=== PATIENT | female | born 1995 | race Caucasian/White ===

== ENCOUNTER 2025-01-29 04:15 | Inpatient (IN) ==
[2025-01-29] MEDS ORDERED: CALCIUM CARBONATE 500 MG CHEWABLE TAB PO PRN (04:59)
[2025-01-29] MEDS ORDERED: ACETAMINOPHEN 325 MG TAB PO PRN ×2 (04:59→10:34)
[2025-01-29] MEDS ORDERED: LIDOCAINE 1% LOCAL 20 ML VIAL INFIL PRN (04:59)
--- NOTE | 2025-01-29 05:06 | History & Physical Report ---
Date of Service January 29, 2025 Assessment & Plan (1) Supervision of normal intrauterine in primigravida: Plan: IUP at 40 5/7 weeks in labor BP mildly elevated with 1+proteinuria will check CMP along with routine labs requesting epidural analgesia anticipate vaginal History of Present Illness Primary Care Provider: CANDIDO Ledesma Patient is a 30 yo female EDC 01/24/25 who presents at 40 5/7 weeks in labor. complicated by May-Thurner Syndrome. 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 syndrome s/p stent left iliac vein Family History Grandfather (Paternal) Stroke Myocardial infarction Grandmother (Paternal) Diabetes Grandfather (Maternal) Cancer Grandfather (Maternal) Heart disease Myocardial infarction Denies family history of Ovarian cancer Prostate cancer Breast cancer Colorectal cancer Social History Smoking Status: Never smoker Second Hand Exposure: No; Do You Dip or Chew Tobacco: No; Hx Alcohol Use: Yes Hx Substance Use: No marital status: marital status details: Ruben (29) [phone] Current Living Situation: Spouse Current Living Situation Comment: Lives with spouse, 1 dog. current occupational status: employed current occupation: Teacher [employer] How many Children do You have: 0 Feels Safe at Home: Yes Diet: regular caffeine: Yes Dental Care, Regularly: Yes Physical Activity Frequency: 3-4 Times per Week Seatbelt Use: always Sunscreen Use: Yes Assistive Devices: Contacts and Glasses Review of Systems All systems reviewed & are unremarkable except as noted in HPI & below Physical Exam Constitutional: WD/WN, vitals as above Psychiatric: A+Ox3, euthymic affect Genitourinary: OB Exam Abdomen: + vertex and + regular contractions (Q 2-4 minutes) Manual OB Exam: + cervical dilation 5 cm and + cervical effacement 100% OB Exam Monitor Tracing: + external FHT monitor used, + category I and + normal FHT variability Results & Data Vital Signs (Past 12 Hours) Vital Signs Temp Pulse Resp BP 01/29/25 04:49 81 145/82 H 01/29/25 04:35 98.1 F 80 20 152/83 H Code Status & VTE Plan VTE Prophylaxis Plan VTE Prophylaxis will be ordered: No Coding Level of Care Code 57768 INT INP/OBS CARE MIN Diagnoses Supervision of normal intrauterine in primigravida Z34.00
[2025-01-29] MEDS: LACTATED RINGER'S 1,000 ML IV PRN (05:10)
[2025-01-29 05:36] LABS: Hematocrit (blood only) 38.6 % (37.0-47.0); Hemoglobin 13.4 g/dl (12.0-16.0); Mean Corpuscular Hemoglobin 31.5 pg (25.0-34.0); Mean Corpuscular Hgb Conc 34.7 g/dL (32.0-36.0); Mean Corpuscular Volume 90.8 fL (80.0-100.0); Mean Platelet Volume 12.4 fL (9.4-12.4); Platelet Count 122 K/uL (130-400); RDW Coefficient of Variation 12.1 % (11.5-14.5); RDW Standard Deviation 40.1 fL (36.4-46.3); Red Blood Count 4.25 M/uL (4.20-5.40); White Blood Count 12.24 K/ul (4.8-10.8)
[2025-01-29 05:52] LABS: Albumin Globulin Ratio 1.3 (0.9-2); Albumin Level 3.4 gm/dl (3.4-5.0); BUN Creatinine Ratio 19.5 (10-20); Bilirubin,Total 0.3 mg/dl (0.2-1.0); Calcium 9.1 mg/dl (8.6-10.3); Creatinine Clr Calc Pharmacy 111.3 ml/min; Globulin 2.7 gm/dl (2.5-4.0); Potassium 4.1 mmol/L (3.5-5.1); Total Protein 6.1 gm/dl (6.0-8.3)
[2025-01-29] MEDS: BUPIVACAINE 0.25% PF 30 ML VIAL ONE (06:22)
[2025-01-29] MEDS: LIDOCAINE 2%/EPINEPHRINE 1:200,000 20 ML PF ONE (06:22)
[2025-01-29] MEDS: fentANYL 2 MCG/ML BUPIVacaine 0.125%-NSS 100ML BAG ONE (06:29)
--- NOTE | 2025-01-29 06:36 | Anesthesiology Consultation ---
Date of Service January 29, 2025 Assessment & Plan Chart Review Chart Review: Acceptable Risk for Labor Epidural Consults Requested none History Height/Weight Height: 5 ft 5 in Weight: 78.018 kg Allergies Allergy/AdvReac Type Severity Reaction Status Date / Time Penicillins AdvReac Hives Verified 01/29/25 04:37 Medications Home Medications Medication Instructions Recorded Confirmed Last Taken aspirin 81 mg tablet 81 mg PO DAILY 10/13/23 01/29/25 01/28/25 docosahexaenoic acid [ DHA] PO 06/01/24 01/27/25 Unknown valacyclovir 1 gram tablet 2,000 mg PO .COMPLEX PRN Cold Sores 01/29/25 01/29/25 Unknown Active Medications Generic Name Dose Route Start Last Admin Trade Name Freq PRN Reason Stop Dose Admin Lactated Ringer's 1,000 mls @ 125 mls/hr 01/29/25 04:59 01/29/25 06:15 Lr IV 01/30/25 04:58 125 mls/hr .Q8H PRN Administration L&D Protocol Protocol Past Medical History Medical History Varicose veins of left leg with edema May-Thurner syndrome s/p stent left iliac vein Past Family History Family History Grandfather (Paternal) Stroke Myocardial infarction Grandmother (Paternal) Diabetes Grandfather (Maternal) Cancer Grandfather (Maternal) Heart disease Myocardial infarction Denies family history of Ovarian cancer Prostate cancer Breast cancer Colorectal cancer Social History Smoking Status: Never smoker Do You Dip or Chew Tobacco: No Hx Alcohol Use: Yes Hx Substance Use: No substance use type: does not use Physical Exam Vital Signs Last Vital Signs Temp 36.7 C 01/29/25 04:35 Pulse 101 H 01/29/25 06:32 Resp 20 01/29/25 04:35 BP 132/61 01/29/25 06:32 Pulse Ox 98 01/29/25 06:31 Testing Laboratory Results 01/29/25 05:09 01/29/25 05:09
[2025-01-29] MEDS ORDERED: NALOXONE HCL 1 MG in SODIUM CHLORIDE 0.9% 1,000 ML IV PRN (06:37)
[2025-01-29] MEDS ORDERED: ePHEDrine sulfate 50 MG/ML AMP IV PRN (06:37)
[2025-01-29] MEDS ORDERED: fentaNYL citrate PF 100 MCG/2 ML VIAL EPI PRN (06:37)
[2025-01-29] MEDS ORDERED: ROPIVACAINE 0.5% PF 5 MG/ML 20 ML VIAL EPI PRN (06:37)
[2025-01-29] MEDS ORDERED: SODIUM CHLORIDE 0.9% PF INJ 10 ML VIAL EPI STA (06:37)
[2025-01-29] MEDS ORDERED: fentANYL 2 MCG/ML BUPIVacaine 0.125%-NSS 100ML BAG EPI PRN (06:37)
[2025-01-29] MEDS ORDERED: LIDOCAINE 2%/EPINEPHRINE 1:200,000 20 ML PF EPI STA (06:37)
[2025-01-29] MEDS ORDERED: BUPIVACAINE 0.25% PF 30 ML VIAL EPI PRN (06:37)
[2025-01-29] MEDS ORDERED: NALBUPHINE HCL INJ 10 MG/ML AMP IV PRN (06:37)
[2025-01-29] MEDS ORDERED: fentaNYL citrate PF 100 MCG/2 ML VIAL EPI STA (06:37)
[2025-01-29] MEDS ORDERED: NALOXONE HCL 0.4 MG/1 ML VIAL/CARP IV PRN (06:37)
[2025-01-29] MEDS ORDERED: diphenhydrAMINE 50 MG/ML VIAL IV PRN (06:37)
[2025-01-29] MEDS ORDERED: BUPIVACAINE 0.25% PF 30 ML VIAL EPI STA (06:37)
[2025-01-29] MEDS ORDERED: LIDOCAINE 2% MPF LOCAL 5 ML VIAL EPI PRN (06:37)
[2025-01-29] MEDS ORDERED: SODIUM CHLORIDE 0.9% PF INJ 10 ML VIAL EPI PRN (06:37)
[2025-01-29] MEDS: ePHEDrine sulfate 50 MG/ML AMP ONE (06:58)
[2025-01-29] MEDS: fentaNYL citrate PF 100 MCG/2 ML VIAL ONE (06:58)
[2025-01-29] MEDS: SODIUM CHLORIDE 0.9% PF INJ 10 ML VIAL ONE (06:59)
--- NOTE | 2025-01-29 08:40 | Labor Progress Brief Note ---
Date of Service January 29, 2025 Subjective Reason For Note: Routine Evaluation Current Pain Level(1-10): 0 contractions [id number] FHT Cat 2- occasional variables cervix exam- 9/100/-1 bulging forewaters ruptured for mec stained fluid continue current plan Assessment & Plan Admission and Anticipated Discharge Date Admission Date: January 29, 2025 Results & Data Vital Signs (Past 12 Hours) Vital Signs Temp Pulse Resp BP Pulse Ox 01/29/25 08:36 73 100 01/29/25 08:34 78 140/75 01/29/25 08:31 82 100 01/29/25 08:26 85 99 01/29/25 08:21 87 99 01/29/25 08:19 95 H 130/78 01/29/25 08:16 96 H 99 01/29/25 08:11 92 H 100 01/29/25 08:06 92 H 100 01/29/25 08:04 82 141/64 H 01/29/25 08:01 88 100 01/29/25 07:56 90 98 01/29/25 07:51 79 97 01/29/25 07:49 88 124/73 01/29/25 07:46 81 98 01/29/25 07:45 18 01/29/25 07:45 18 01/29/25 07:41 83 98 01/29/25 07:36 82 99 01/29/25 07:33 83 131/71 01/29/25 07:31 81 100 01/29/25 07:30 20 01/29/25 07:30 20 01/29/25 07:26 84 100 01/29/25 07:22 92 H 152/77 H 01/29/25 07:21 103 H 99 01/29/25 07:19 81 135/95 01/29/25 07:16 89 97 01/29/25 07:15 20 01/29/25 07:15 20 01/29/25 07:11 85 98 01/29/25 07:06 81 98 01/29/25 07:03 88 134/75 01/29/25 07:02 98.2 F 82 18 99 01/29/25 07:01 88 130/72 99 01/29/25 07:00 18 01/29/25 07:00 18 01/29/25 06:56 89 100 01/29/25 06:51 88 99 01/29/25 06:48 83 134/76 01/29/25 06:46 83 99 01/29/25 06:41 89 98 01/29/25 06:36 87 98 01/29/25 06:32 101 H 132/61 01/29/25 06:31 96 H 98 01/29/25 06:30 99 H 123/59 L 01/29/25 06:28 97 H 127/68 01/29/25 06:26 96 H 122/64 98 01/29/25 06:24 85 131/71 01/29/25 06:22 85 124/69 01/29/25 06:21 79 98 01/29/25 06:20 84 131/68 01/29/25 06:18 75 134/68 01/29/25 06:16 78 134/72 100 01/29/25 06:14 75 142/77 H 01/29/25 06:11 83 99 01/29/25 06:06 94 H 99 01/29/25 06:01 97 H 99 01/29/25 05:56 89 99 01/29/25 05:51 83 99 01/29/25 05:46 86 99 01/29/25 04:49 81 145/82 H 01/29/25 04:35 98.1 F 80 20 152/83 H Coding Level of Care Code 88635 SUB INP/OBS CARE 12/24MIN
[2025-01-29] MEDS: OXYTOCIN 30 UNITS/NSS 30 UNITS/500 ML BAG IV PRN ×2 (10:01→11:17)
[2025-01-29] MEDS: miSOPROStoL 200 MCG TAB ONE (10:05)
[2025-01-29] MEDS ORDERED: DIPHTHER/TETAN/PERTUS Vaccine (Tdap, Adol/Adult) 0.5mL IM ONE (10:34)
[2025-01-29] MEDS ORDERED: HYDROCORTISONE ACETATE 25 MG SUPP PR PRN (10:34)
[2025-01-29] MEDS ORDERED: oxyCODONE/ACETAMINOPHEN 5mg/325mg TAB PO PRN (10:34)
[2025-01-29] MEDS ORDERED: bisacodyL 10 MG SUPP PR PRN (10:34)
--- NOTE | 2025-01-29 11:05 | Anesthesia Procedure Note ---
Date of Service January 29, 2025 Anesthesia Post Epidural Note Vital Signs Vital Signs: Temp Pulse Resp BP Pulse Ox 36.7 C 133 H 18 146/65 H 90 01/29/25 08:35 01/29/25 10:51 01/29/25 08:35 01/29/25 10:51 01/29/25 08:56 Pain Intensity Lower Medial Back: Pain Intensity: 3 Notes Mental Status: alert / awake / arousable Nausea / Vomiting: adequately controlled Pain: adequately controlled Airway Patency, RR, SpO2: stable & adequate BP & HR: stable & adequate Hydration State: stable & adequate Neuraxial Anesthesia: was administered and sensory block is resolving Anesthetic Complications: no major complications apparent Epidural: Removed without complications and With tip intact
--- NOTE | 2025-01-29 11:21 | Delivery Summary ---
Vaginal Delivery Summary Date of Service January 29, 2025 Vaginal Delivery Summary and 1st Degree LAC Patient is a 30-year-old 1 P0 female EDC of 01/24/2025 who presented in active labor at 40-5/7 weeks. Membranes were ruptured for meconium stained fluid. She received effective epidural analgesia. She progressed to complete with the urge to push. She pushed effectively over intact perineum for delivery of a viable male infant. After the head was delivered, the shoulders delivered with maternal effort and the rest of the delivered easily. He is placed on the mother's abdomen for further stimulation and drying. He was crying and vigorous with stimulation. The cord was clamped at approximately 20 seconds as it was quite short. This was to allow the infant to be placed more securely on the mother's abdomen. After cord blood was obtained, the placenta was expressed intact with a three-vessel cord. bleeding was controlled with dilute Pitocin and fundal massage and then 1000 mcg of Cytotec because of significant bleeding because of uterine atony. Uterus then became firm and bleeding was minimal. A first-degree perineal laceration was repaired with 3-0 chromic in the usual fashion. Mother and infant were doing well after delivery and despite 1500 mL QBL, patient is asymptomatic at this time. [facility] Vaginal Delivery Charge Delivery Type Details: and 1st Degree LAC
[2025-01-29] MEDS: IBUPROFEN 600 MG TAB PO PRN (12:59)
[2025-01-29] MEDS: BENZOCAINE 20% SPRY 85 APPLN/85 GM CAN EXT PRN (19:57)
[2025-01-29] MEDS: DOCUSATE SODIUM 100 MG CAP PO SCH (23:46)
--- NOTE | 2025-01-30 06:53 | Obstetrical Progress Note ---
Date of Service January 30, 2025 Assessment & Plan (1) state: Plan: satisfactory recovery continue current care plan loss prevention consultant today for help encourage ambulation as tolerated Ordered CBC to follow hemoglobin after 1.5L QBL day prior d/c home today if CBC is acceptable, followup with Dr. Viveros in 6wks (2) hemorrhage: (3) Perineal laceration during delivery: Admission and Anticipated Discharge Date Admission Date: January 29, 2025 Supervising Physician Co-Signing Physician Notes Resident Physician Supervision Note: I was present with Dr. Maguire during the history and exam. I discussed the case with the resident and agree with the findings and plan as documented in the note. Any exceptions or clarifications are listed here: [None] Documented By: Ml Viveros MD, FACOG Subjective 29yo s/p with 1st deg perineal lac and hemorrhage QBL 1500mL day 1: Ambulation: ambulating normally Voiding: no voiding problems Passing Gas:: Yes Diet Tolerance:: regular diet Lochia:: Small Feeding Type:: doing well this morning- denies any symptoms of lightheadedness, dizziness, palpitations Physical Exam Physical Exam: Constitutional: WD/WN, vitals as above Psychiatric: A+Ox3, euthymic but tired appearing Genitourinary: OB Exam Abdomen: + fundus firm at umbilicus Ext: no significant LE edema Results & Data Vital Signs (Past 12 Hours) Vital Signs Temp Pulse Resp BP Pulse Ox O2 Del Method 01/30/25 04:00 36.5 C 81 18 112/70 98 Room Air 01/29/25 23:45 36.4 C L 87 18 112/72 97 Room Air 01/29/25 19:50 36.8 C 97 H 18 113/74 97 Room Air Resident Activity Tracking Resident Involvement: Resident Care Provided Care Provided: OB Delivery (2) hemorrhage hemorrhage type: unspecified Qualified Code(s): O72.1 - Other immediate hemorrhage (3) Perineal laceration during delivery Perineal laceration degree: first degree Qualified Code(s): O70.0 - First degree perineal laceration during delivery
[2025-01-30] MEDS: PRENATAL VITAMIN 1 TAB PO SCH (07:54)
[2025-01-30 09:31] LABS: Hematocrit (blood only) 28.4 % (37.0-47.0); Hemoglobin 9.5 g/dl (12.0-16.0); Mean Corpuscular Hemoglobin 31.6 pg (25.0-34.0); Mean Corpuscular Hgb Conc 33.5 g/dL (32.0-36.0); Mean Corpuscular Volume 94.4 fL (80.0-100.0); Mean Platelet Volume 12.4 fL (9.4-12.4); Platelet Count 106 K/uL (130-400); RDW Coefficient of Variation 12.5 % (11.5-14.5); RDW Standard Deviation 43.1 fL (36.4-46.3); Red Blood Count 3.01 M/uL (4.20-5.40); White Blood Count 10.36 K/ul (4.8-10.8)
[2025-01-30] MEDS: FERROUS SULFATE 325 MG TAB PO SCH (11:07)
[2025-01-30] MEDS: bisacodyL 5 MG TABEC PO SCH (20:11)
[2025-01-31 00:45] VITALS: PULSE 85; RESP 18; O2SAT 98
--- NOTE | 2025-01-31 06:09 | Obstetrical Progress Note ---
Date of Service January 31, 2025 Assessment & Plan (1) state: Plan: satisfactory recovery continue current care plan encourage ambulation and as tolerated CBC 9.5 on 01/30/25, contiues to be asymptomatic d/c home today, followup with Dr. Long in 6wks (2) hemorrhage: (3) Perineal laceration during delivery: Admission and Anticipated Discharge Date Admission Date: January 29, 2025 Supervising Physician Co-Signing Physician Notes Resident Physician Supervision Note: I interviewed and examined the patient. Discussed with Dr. Holm and agree with findings and plan as documented in the note. Any exceptions or clarifications are listed here: PP2 s/p c/b PPH, doing well. VSS, exam benign. Stable for dc today Documented By: Rosalina Long MD Subjective 30yo s/p with 1st deg perineal lac and hemorrhage QBL 1500mL day 2: Ambulation: ambulating normally Voiding: urinating Passing Gas: Yes Diet Tolerance: regular diet Lochia: Small Feeding Type: doing well this morning- denies any symptoms of lightheadedness, dizziness, palpitations Physical Exam Physical Exam: Constitutional: WD/WN, vitals as above Psychiatric: A&Ox3, euthymic GI/abd: +BS, abdomen still distended but soft, fundus palpable 1fw- umbilicus Ext: no LE edema, calves nontender to palpation, wiggles toes Results & Data Vital Signs (Past 12 Hours) Vital Signs Temp Pulse Resp BP Pulse Ox O2 Del Method 01/31/25 00:07 36.4 C L 85 18 120/67 98 Room Air 01/30/25 20:14 36.4 C L 78 20 113/75 95 Room Air Resident Activity Tracking Resident Involvement: Resident Care Provided Care Provided: OB Delivery (2) hemorrhage hemorrhage type: unspecified Qualified Code(s): O72.1 - Other immediate hemorrhage (3) Perineal laceration during delivery Perineal laceration degree: first degree Qualified Code(s): O70.0 - First degree perineal laceration during delivery
[2025-01-31 07:26] LABS: Hematocrit (blood only) 27.4 % (37.0-47.0); Hemoglobin 9.5 g/dl (12.0-16.0)
[2025-01-31 08:52] VITALS: BP 126/74; TEMP 98.1
== END 2025-01-31 13:15 | disposition home or self-care (01) | DRG 806 ==
LOC: OPB 04:15 → 4S1 04:18 → 4E2 13:00